=== PATIENT | female | born 1970 | race Caucasian/White ===

== ENCOUNTER 2017-04-11 14:50 | Emergency (ER) | payer OTHER ==
[~2017-04-11] VITALS: Ht 165.1 cm; Wt 73.5 kg
== END 2017-04-11 19:42 | disposition home or self-care (01) ==
LOC: ER 14:50
DX: O23.31 Infections of other parts of urinary tract in pregnancy, first trimester (principal); R33.8 Other retention of urine; Z34.01 Encounter for supervision of normal first pregnancy, first trimester

== ENCOUNTER 2017-07-26 08:44 | Outpatient (CLI) | payer OTHER | END 2017-07-26 10:00 | disposition home or self-care (01) | LOC: NST 08:44 | DX: O16.3 Unspecified maternal hypertension, third trimester (principal); Z34.83 Encounter for supervision of other normal pregnancy, third trimester ==

== ENCOUNTER 2017-07-31 08:52 | Outpatient (CLI) | payer OTHER | END 2017-07-31 10:03 | disposition home or self-care (01) | LOC: NST 08:52 | DX: Z34.83 Encounter for supervision of other normal pregnancy, third trimester (principal) ==

== ENCOUNTER 2017-08-07 08:49 | Outpatient (CLI) | payer OTHER ==
[2017-08-07] MEDS ORDERED: PRENATAL 19 TA1 EACH PO (12:02)
== END 2017-08-07 10:04 | disposition still patient (30) ==
LOC: NST 08:49
DX: Z34.83 Encounter for supervision of other normal pregnancy, third trimester (principal)

== ENCOUNTER 2017-08-07 09:57 | Inpatient (IN) | payer OTHER ==
[~2017-08-07] VITALS: Ht 165.1 cm; Wt 5.0 kg
[2017-08-07] MEDS ORDERED: PRENATAL 19 TA1 EACH PO (12:02)
== END 2017-08-08 10:40 | disposition home or self-care (01) | DRG 778 ==
LOC: LDR 09:57
PROC: 4A1HXCZ Monitoring of Products of Conception, Cardiac Rate, External Approach (ICD-10-PCS; principal; 2017-08-07)
DX: O60.03 Preterm labor without delivery, third trimester (principal); Z3A.29 29 weeks gestation of pregnancy

== ENCOUNTER 2017-09-04 09:30 | Outpatient (CLI) | payer OTHER ==
[~2017-09-04 09:30] MED LIST: PRENATAL 19 TA1 EACH PO
[2017-09-04] MEDS ORDERED: LABETALOL HCL200 MG PO (17:11)
== END 2017-09-04 10:07 | disposition home or self-care (01) ==
LOC: NST 09:30
DX: Z34.83 Encounter for supervision of other normal pregnancy, third trimester (principal)

== ENCOUNTER 2017-09-04 14:22 | Inpatient (IN) | payer OTHER ==
[~2017-09-04] VITALS: Ht 165.1 cm; Wt 77.1 kg
[2017-09-04] MEDS ORDERED: LABETALOL HCL200 MG PO (17:11)
== END 2017-09-09 11:20 | DRG 782 ==
LOC: LDR 14:22 → OB/GYN 14:22
PROC: 4A1HXCZ Monitoring of Products of Conception, Cardiac Rate, External Approach (ICD-10-PCS; principal; 2017-09-04)
DX: O13.3 Gestational [pregnancy-induced] hypertension without significant proteinuria, third trimester (principal)

== ENCOUNTER 2017-09-13 09:21 | Outpatient (CLI) | payer OTHER ==
[~2017-09-13 09:21] MED LIST changes: +LABETALOL HCL200 MG PO
[2017-09-14] MEDS ORDERED: LABETALOL HCL300 MG PO (13:47)
== END 2017-09-13 10:06 | disposition home or self-care (01) ==
LOC: NST 09:21
DX: Z34.03 Encounter for supervision of normal first pregnancy, third trimester (principal)

== ENCOUNTER 2017-09-14 11:55 | Inpatient (IN) | payer OTHER ==
[~2017-09-14] VITALS: Ht 165.1 cm; Wt 1.8 kg
[2017-09-14] MEDS ORDERED: LABETALOL HCL300 MG PO (13:47)
== END 2017-09-17 13:58 | DRG 766 ==
LOC: LDR 11:55 → OB/GYN 11:55
PROVIDERS: Obstetrics & Gynecology
PROC: 3E033VJ Introduction of Other Hormone into Peripheral Vein, Percutaneous Approach (ICD-10-PCS; 2017-09-14)
PROC: 4A033R1 Measurement of Arterial Saturation, Peripheral, Percutaneous Approach (ICD-10-PCS; 2017-09-14)
PROC: 4A1HXCZ Monitoring of Products of Conception, Cardiac Rate, External Approach (ICD-10-PCS; 2017-09-14)
PROC: 10D00Z1 Extraction of Products of Conception, Low, Open Approach (ICD-10-PCS; principal; 2017-09-14 17:00)
DX: O62.0 Primary inadequate contractions (principal); O13.4 Gestational [pregnancy-induced] hypertension without significant proteinuria, complicating childbirth; O99.824 Streptococcus B carrier state complicating childbirth; Z3A.35 35 weeks gestation of pregnancy; Z37.0 Single live birth